=== PATIENT | female | born 1960 | race Caucasian/White ===

== ENCOUNTER → 2017-08-15 15:00 | Outpatient (CLI) | payer BC, OTHER ==
[~2017-08-15 15:00] MED LIST: ALEVE220 MG PO; HEMOCYTE PLUS C1 CAP PO; LAMISIL250 MG PO; LEXAPRO10 MG PO; NEXIUM20 MG PO; OYSCO 500+D TAB1 TAB PO; PERCOCET 10/3251 TA1 PO; PROBIOTIC1 EAC1 PO; REQUIP0.5 MG PO; TUMERIC CURCUMIN PO; [UNRECOGNIZED DRUG - OTHER] PO
[2017-08-26 11:07] VITALS: BMI 40.7
== END | disposition home or self-care (01) ==
LOC: D.RT 15:00
DX: R91.8 Other nonspecific abnormal finding of lung field (principal)

== ENCOUNTER 2017-08-22 05:05 | Inpatient (IN) | payer BC, OTHER ==
[2017-08-21 09:44] LABS: HEMATOCRIT 38.7 % (36.0-48.0); HEMOGLOBIN 12.7 g/dL (12-16); MCH 28.9 pg (26.0-34.0); MCHC 32.8 g/dL (31.0-37.0); MCV 88.2 fL (80.0-100.0); MEAN PLATELET VOLUME 11.7 fL (7.4-10.4); RBC 4.39 10x6/uL (4.00-5.40); RDW 13.6 % (11.5-14.5); WBC 6.9 10x3/uL (4.8-10.8)
[2017-08-21 09:52] LABS: APTT 29.8 SECONDS (22.8-39.4); INR 1.04 (0.85-1.17); PROTIME 13.2 SECONDS (11.6-15.0)
[2017-08-21 09:54] LABS: APPEARANCE CLEAR (CLEAR); BILIRUBIN NEGATIVE (NEGATIVE); COLOR YELLOW (YELLOW); GLUCOSE NEGATIVE (NEGATIVE); KETONE NEGATIVE (NEGATIVE); NITRITE NEGATIVE (NEGATIVE); PROTEIN NEGATIVE (NEGATIVE); SPECIFIC GRAVITY 1.015 (1.005-1.020); UROBILINOGEN NORMAL (NORMAL)
[2017-08-21 10:14] LABS: CREATININE - SERUM 0.9 mg/dL (0.6-1.3)
[2017-08-21 10:15] LABS: ANION GAP 12.6 mmol/L (8-16); BILIRUBIN - TOTAL 0.39 mg/dL (0.2-1.3); CALCIUM 8.7 mg/dL (8.5-10.1); CARBON DIOXIDE 28.3 mmol/L (21.0-32.0); POTASSIUM - SERUM 3.9 mmol/L (3.5-5.1); PROTEIN - SERUM 7.3 g/dL (6.4-8.2)
[~2017-08-22] VITALS: Ht 172.7 cm; Wt 117.3 kg
[2017-08-22] VITALS (48 sets, daily range): BP systolic 88–148; BP diastolic 40–93; BMI 39.4
--- NOTE | ~2017-08-22 | OP ---
PATIENT NAME: XIAO MCMLULEN MEDICAL RECORD: [id number] :58 LOCATION:[facility] ADMISSION DATE:08/22/17 SURGEON: COLEMAN THORNE MD DATE OF OPERATION: 08/22/2017 SURGEON: Coleman Thorne MD ANESTHESIA: General endotracheal. ANESTHESIOLOGIST: Cirilo Hammond MD CATCHER FILTER TIP: Cirilo Robison MD OPERATION PERFORMED: 1. Right thoracotomy with mediastinal dissection of lymph nodes level 7, 8, and 9. 2. Video-assisted thoracoscopy on the right lower lobe superior segmentectomy. 3. Flexible fiberoptic bronchoscopy. PREOPERATIVE DIAGNOSIS: History of malignant melanoma with a lesion in the superior segment of the right lower lobe that is reactive on PET scan. POSTOPERATIVE DIAGNOSIS: Benign inflammatory tumor, right lower lobe. INDICATION FOR OPERATION: Solitary pulmonary nodule. FINDINGS OF THE OPERATION: Solitary pulmonary nodule by frozen section is benign inflammatory tissue. Enlarged lymph nodes level 7, 8, and 9. SPECIMENS: 1. Right lower lobe superior segmentectomy. 2. Level 7 lymph nodes. 3. Level 8 lymph nodes. 4. Level 9 lymph nodes. ESTIMATED BLOOD LOSS: Less than 100 mL. DESCRIPTION OF PROCEDURE: After informed consent, adequate preoperative medication evaluation, the patient was brought to the operating room, placed on the table in the supine position. After induction of general endotracheal anesthesia and application of appropriate monitoring devices, the flexible fiberoptic bronchoscopy and placement of a double lumen tube, the patient was turned in a left lateral decubitus position. The right chest prepped and draped in sterile field, utilizing Betadine scrub, alcohol, and Betadine solution. A Betadine-impregnated drape was also used. The pressure points and neurological structures were protected. A video-assisted thoracoscopy port was placed in the mid axillary line at ninth interspace and the lung examined. There was neovascularization of the superior segment of the right lower lobe and 2 working ports were made, one anteriorly and one posteriorly utilizing a blunt fabric dissector and Harmonic scalpel. The posterior fissure was partially developed and utilizing an Endo-BOBBY stapler, the posterior fissure was further developed. Attention was then turned towards the middle lobe and its junction to the bronchus intermedius was approximated. The posterior hilum was dissected utilizing a Harmonic scalpel and sharp dissection. Using an Endo-BOBBY stapler, the segmentectomy was performed of the superior segment in right lower lobe. OPERATIVE REPORT [id number] XIAO MCMULLEN This was extracted. Examination did not demonstrate the nodule to Dr. Robison or myself. Therefore, the specimen was sent to pathology. On visual exam with the video-assisted thoracoscopy, there were enlarged lymph nodes that were black at level 7, 8, and 9. A small thoracotomy incision was then made from the posterior port anteriorly to better examine the lung, the thoracotomy was extended, and manual palpation of the lower lobe, middle lobe, and upper lobe did not reveal any abnormality. The lymph nodes at level 7, 8, and 9 were then dissected free of surrounding structures and sent to pathology separately. The inferior pulmonary ligament was mobilized and dissection carried out anteriorly to the level of the middle lobe vein. The chest was irrigated away being for pathology. The pathologist found a nodule in the superior segment. Specimen and frozen section did not reveal any carcinoma or malignant melanoma. The pathologist felt that this was an inflammatory lesion and not malignant. We therefore irrigated the chest with copious amounts of antibiotic solution and normal saline. There was no active bleeding. Instrument count and sponge counts were correct times 2. Two #32 chest tubes were placed, one anteriorly and superiorly, one posteriorly and inferiorly. Chest was again irrigated. Instrument count and sponge count were correct times 2. Chest was closed in layers utilizing #2 Vicryl pericostal sutures, #1 Vicryl on the latissimus dorsi, 2-0 Vicryl on the subcutaneous tissue, and skin approximated with 3-0 subcuticular Vicryl. One of the chest tubes was placed in the camera port. The other port was closed utilizing 2-0 Vicryl and 5-0 subcuticular Monocryl. Sterile dressings were applied. The patient tolerated the procedure in the supine position. She underwent flexible fiberoptic bronchoscopy once again with removal of mucus in the right main stem bronchus. The patient was then awakened and conveyed to the CV-ICU in satisfactory condition. TRANSINT:[id number] Voice Confirmation ID: [id number] DOCUMENT ID: [id number] COLEMAN THORNE MD at 1058 CC: [id number] DICTATION DATE: 08/22/17 1239 ENDODONTIST: 08/22/17 1408 ADM IN [id number] [place] [address]
--- NOTE | ~2017-08-22 | HP ---
PATIENT: XIAO MCMULLEN MEDICAL RECORD: [id number] ACCOUNT: [id number] LOCATION:[facility] : 58 ADMISSION DATE: 08/22/17 HISTORY AND PHYSICAL EXAMINATION XIAO Stauffer (57yo, F) ID# [id number]. Date/Time08/14/2017 02:15XTAMY01 1960Service Dept.NP_[facility] ClinicProviderEDNITZA THORNE MDInsuranceMed Primary: [place] ([place]) Insurance # : [id number] Employer Name : UNKNOWN Med Secondary: FOR LIFE ( - MEDICARE SUPPLEMENT) Insurance # : [id number] Employer Name : UNKNOWN Prescription: CMX - Member is eligible. Prescription: ESI1 - Member is eligible. Chief Complaint Lung mass right pulmonary mass Vitals BP:146/84 sitting L arm 08/14/2017 01:45 pm 144/82 sitting R arm 08/14/2017 01:46 pmBP Cuff Size:adult 08/14/2017 01:45 pm adult 08/14/2017 01:46 pmHR:72,reg 08/14/2017 01:46 pmHt:5 ft 8 in 08/14/2017 01:46 pmWt:250 lbs 08/14/2017 01:46 pmNotes:started out with melanoma to right tricep, was sent to [facility] for f/u, he found spot on r LL on PET. Had CT guided biopsy, showed inflammation.Reimaged 3 months later, it was still there and unchanged. Sent to Dr Thorne by Dr Joy for evaluation. 08/14/2017 01:49 pmBMI:38 08/14/2017 01:46 pmAllergies Reviewed Allergies PENICILLINSMedications Reviewed Medications azithromycin 250 mg xgsyhz99/02/17 crzjnsYrxqkutvytcwqwtrbimchbo-bvbtercswwyrdqr-YB 2 mg-30 mg-10 mg/5 mL syrup07/21/16 filledCaremarkCheratussin AC 10 mg-100 mg/5 mL oral biwfxa08/30/17 filledCaremarkdoxycycline hyclate 100 mg uypapsp16/30/17 filledCaremarkescitalopram 10 mg wzlyme48/12/18 filledCaremarkmeloxicam 15 mg /07/18 filledCaremarkmethylPREDNISolone 4 mg tablets in a dose pack07/21/16 filledCaremarkrOPINIRole 0.25 mg /07/18 filledCaremarkrOPINIRole 0.5 mg aafmwx00/12/18 filledCaremarkterbinafine HCl 250 mg bosbns85/07/18 filledCaremarkProblems Reviewed Problems History of Malignant melanoma - Onset: 08/14/2017 Solitary nodule of lung - Onset: 08/08/2017 Family History Discussed Family History Father- Malignant tumor of lung - Carcinoma of prostateMother- Carcinoma of breastSocial History Discussed Social History Cardiology Smoking Status: Never smoker Alcohol intake: None Surgical History Reviewed Surgical History R triceps 0.75mm superficial spreading melanoma 02/16/17, wide local excision 03/02/17 HISTORY AND PHYSICAL [id number] 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 HPI Dyspnea Reported by patient. Associated Symptoms: no chest pain; no palpitations; no orthopnea; no PND; no fever; no chills; no wheezing; no dietary indiscretion; no sputum production; no hemoptysis; no weight gain; no dyspepsia Fatigue Reported by patient. Severity: normal sleep patterns; normal exercise habits; normal activity; improving Timing: better Context: symptoms improve on weekends/vacation; no problems/stress at work or home Modifying Factors: no new stressors in life; taking vitamins Associated Symptoms: no drug/alcohol withdrawal; no depression; no anxiety; no sleep disturbances; no snoring; periods of not breathing (apnea) have not been observed; no recent change in weight malignant melanoma removed right tricep area of March 2017 hyper metabolic right lower lobe lesion ROS Patient re ports no fever, no night sweats, no significant weight gain, no significant weight loss, and no exercise intolerance. She reports no dry eyes, no irritation, and no vision change. She reports no difficulty hearing and no ear pain. She reports no frequent n osebleeds and no nose/sinus problems. She reports no sore throat, no bleeding gums, no snoring, no dry mouth, no mouth ulcers, no oral abnormalities, and no teeth problems. She reports no jugular vein distension and no swollen glands. She reports no chest pain, no arm pain on exertion, no shortness of breath when walking, no shortness of breath when lying down, no palpitations, and no known heart murmur. She reports no cough, no wheezing, no shortness of breath, and no coughing up blood. She reports no abd o geno pain, no vomiting, normal appetite, no diarrhea, not vomiting blood, no nausea, and no constipation. She reports no incontinence, no difficulty urinating, no hematuria, and no increased frequency. She reports no muscle aches, no muscle weakness, no a rthralgias/joint pain, no back pain, and no swelling in the extremities. She reports no abnormal mole, no jaundice, and no rashes. She reports no loss of consciousness, no weakness, no numbness, no seizures, no dizziness, and no headaches. She reports no depression, no sleep disturbances, feeling safe in relationship, and no alcohol abuse. She reports no fatigue. She reports no swollen glands and no bruising. She reports no runny nose, no sinus pressure, no itching, no hives, and no frequent sneezing. ROS as noted in the HPI Physical Exam Patient is a 57-year-old female. Constitutional: General Appearance healthy-appearing and obese. Level of Distress NAD. Ambulation ambulating normally. Cardiovascular: Apical Impulse not displaced or no thrill. Heart Aus cultation HISTORY AND PHYSICAL [id number] STANDERFERXIAO normal s1 and s2; no murmurs, rubs, or gallops; and RRR. Arterial Pulses no abdominal aorta bruits, femoral bruits, or popliteal bruits and 2+ bilateral, carotid 2+ bilateral, femoral 2+ bilateral, popliteal 2+ bilateral, and dorsalis pedis 2+ b ilateral. Edema no edema or varicosities. Lungs: Repiratory Effort no dyspnea. Percussion no hyperresonance or dullness or flatness. Auscultation no wheezing, rhonchi, or rales / crackles and breathing sounds normal, good air movement, and CTA except as noted. Abdomen: Bowl Sounds normal. Inspection and Palpation no tenderness, guarding, masses, or rebound tenderness and soft and non-distended. Liver non-tender and no hepatomegaly. Spleen non-tender and no splenomegaly. Hernia none palpable. Musculoskeletal System: Gait And Stance normal gait and stance. Digits and Nails normal nails and no cyanosis. Neurologic: Cranial Nerves grossly intact. Reflexes DTRs 2+ bilaterally throughout. Sensation grossly intact. Lymph Nodes: Lymph Nodes no cervical LAD, supraclavicular LAD, axillary LAD, or inguinal LAD. Eyes: Lids and Conjunctivae no discharge or pallor and non-injected. Pupils PERRLA. Cornea grossly intact. EOM EOMI. Lens clear. Sclera non-icteric. Neck: Neck no masses, enlarged lymph nodes, or carotid bruits and supple and trachea midline. Thyroid no enlargement or nodules and non-tender. Skin: Inspection and Palpation no rash, lesions, ulcers, jaundice, or abnormal nevi; right tricep incision well healed. Assessment / Plan history of malignant melanoma right arm Solitary pulmonary nodule superior segment right lower lobe hypermetabolic on PET scan 1. Solitary nodule of lung - solitary pulmonary nodule right lung superior segment right lower lobe R91.1: Solitary pulmonary nodule 2. History of Malignant melanoma Z85.820: Personal history of malignant melanoma of skin Discussion Notes the patient has a recent history of malignant melanoma. She has a hypermetabolic nodule in the superior segment to the right lower lobe. I Agree with Dr. Ton Joy she would benefit from pulmonary resection. We will try to resect this lesion with video-assisted thoracoscopy. If we cannot locate the nodule or other multiple reasons she will require an open th o racotomy. We discussed segmental resection as well as lobectomy . We also discussed the expected benefits and risk of surgery and the risk included bleeding, infection, stroke, , and the imponderables. She and her understand all of the above and wished to proceed with planned surgery. She will need pulmonary function studies prior to surgery. HISTORY AND PHYSICAL [id number] XIAO MCMULLEN EDWARD MD at 1401 CC: [id number] DICTATION DATE: 08/14/17 1400 CONTROL OFFICER MANAGER: ASIA 08/15/17 1133 [id number] [place] [address]
--- NOTE | ~2017-08-22 | OP ---
PATIENT NAME: XIAO MCMULLEN MEDICAL RECORD: [id number] :58 LOCATION:[facility] ADMISSION DATE:08/22/17 SURGEON: YASMINE HICKMAN MD DATE OF OPERATION: 08/22/[address] Coleman Magallon with the video-assisted thoracoscopic wedge resection. My involvement in the operation included being there from the beginning of the operation. I inserted one of the thoracoscopic trocars. My activity in the operation included, but was not limited to, manipulation of tissue. Multiple firings of the linear stapling device. Manipulation of the lung, insertion of the endoscopic retrieval bag. Also retrieval of the operative specimen through one of the trocar sites. I then scrubbed out as Dr. Magallon was planning on performing a full thoracotomy. TRANSINT:[id number] Voice Confirmation ID: [id number] DOCUMENT ID: [id number] YASMINE HICKMAN MD CC: [id number] DICTATION DATE: 08/22/171627 TOUR ESCORT: 08/22/17 1735 ADM IN [facility] [address] [id number]
--- NOTE | ~2017-08-22 | CN ---
PATIENT NAME:XIAO JUARES MEDICAL RECORD: [id number] : 58 LOCATION:[facility] ADMIT DATE: 08/22/17 ACCOUNT: [id number] CONSULTING PHYSICIAN: KORIN LANE MD REFERRING PHYSICIAN: COLEMAN THORNE MD DATE OF CONSULTATION: 08/25/2017 CONSULT REQUESTING PHYSICIAN: Dr. Coleman Thorne. REASON FOR CONSULTATION: Atelectasis, right lower lobe status post partial lobectomy. HISTORY OF PRESENT ILLNESS: Ms. Juares is a 57-year-old female who has a history of melanoma of the right arm. The patient has a PET scan, which showed a nodule in the superior segment of the right lower lobe. The nodule was hypermetabolic. The patient underwent superior segmental resection and lymph node removal on 08/22/2017. The chest radiograph today showed that the patient has atelectasis and elevated right hemidiaphragm. REVIEW OF SYSTEMS: Mainly in the history of present illness. PAST MEDICAL HISTORY: 1. Pulmonary melanoma. 2. Pulmonary nodule. PAST SURGICAL HISTORY: She is now status post resection of the superior segment of the right lower lobe. ALLERGIES: There are no known drug allergies. PRESENT MEDICATIONS: Vinja was reviewed. PERSONAL AND SOCIAL HISTORY: The patient is a nonsmoker, nondrinker. FAMILY HISTORY: Noncontributory. PHYSICAL EXAMINATION: GENERAL: Now, the patient is lying comfortably. She is not in acute distress. VITAL SIGNS: The blood pressure is 126/57, pulse is 90, respiration 20, temperature 98.6, SPO2 is 92% on room air. HEENT: Conjunctivae pink, sclerae nonicteric. NECK: Supple, no JVD. CHEST: The chest excursion is minimal on the right side. There are crackles at the right base. HEART: Rhythm regular, normal sound, no murmur. ABDOMEN: Soft. Bowel sounds present. No hepatosplenomegaly. RECTAL: Deferred. EXTREMITIES: No cyanosis, no clubbing, no pedal edema. SKIN: Warm, normal turgor. CENTRAL NERVOUS SYSTEM: The patient is awake and alert. There are no obvious cranial nerve abnormalities. The gait was not tested. IMAGING: CT scan of the chest: There are postoperative changes. There are 2 right-sided chest tubes, volume less in the right hemithorax with area of consolidation with air bronchogram, adjacent to the surgical sutures. There are CONSULT REPORT [id number] XIAO JUARES prominent enlarged mediastinal lymph nodes measuring about 1.1 cm. IMPRESSION: 1. Pneumonia with air bronchogram in the right lower lobe. 2. Atelectasis in the right lower lobe. 3. Elevated right hemidiaphragm secondary to above. 4. Status post resection of the superior segment of the right lower lobe. 5. Pulmonary nodule. 6. History of melanoma. RECOMMENDATIONS: 1. We will start her on empiric antibiotics to cover for the gram-negative rods. 2. Mucinex. 3. Nebulizer with IPPB. Dr. Thorne thank you for involving me in the care of Ms. Juares. TRANSINT:[id number] Voice Confirmation ID: [id number] DOCUMENT ID: [id number] KORIN LANE MD CC: COLEMAN THORNE [id number] DICTATION DATE: 08/25/17 183 BARIATRIC SURGEON: 08/25/172110 ADM IN [facility] [address] [id number]
[~2017-08-22 05:05] MED LIST changes: -HEMOCYTE PLUS C1 CAP PO; -PERCOCET 10/3251 TA1 PO
[2017-08-23] VITALS (97 sets, daily range): BP systolic 90–124; BP diastolic 47–74; BMI 40.7
[2017-08-23 07:08] LABS: HEMATOCRIT 35.1 % (36.0-48.0); HEMOGLOBIN 11.4 g/dL (12-16); MCH 28.9 pg (26.0-34.0); MCHC 32.5 g/dL (31.0-37.0); MCV 89.1 fL (80.0-100.0); MEAN PLATELET VOLUME 11.2 fL (7.4-10.4); RBC 3.94 10x6/uL (4.00-5.40); RDW 13.7 % (11.5-14.5)
[2017-08-23 07:14] LABS: BILIRUBIN - TOTAL 0.53 mg/dL (0.2-1.3); CALCIUM 7.6 mg/dL (8.5-10.1); CARBON DIOXIDE 26.9 mmol/L (21.0-32.0); CREATININE - SERUM 0.9 mg/dL (0.6-1.3); POTASSIUM - SERUM 3.9 mmol/L (3.5-5.1)
[2017-08-23 07:16] LABS: WBC 12.3 10x3/uL (4.8-10.8)
[2017-08-23 07:19] LABS: ALBUMIN 2.9 g/dL (3.4-5.0)
[2017-08-24] VITALS (40 sets, daily range): BP systolic 91–121; BP diastolic 38–88
[2017-08-24 06:37] LABS: HEMATOCRIT 31.8 % (36.0-48.0); HEMOGLOBIN 10.2 g/dL (12-16); MCH 28.8 pg (26.0-34.0); MCHC 32.1 g/dL (31.0-37.0); MCV 89.8 fL (80.0-100.0); MEAN PLATELET VOLUME 10.9 fL (7.4-10.4); RBC 3.54 10x6/uL (4.00-5.40); RDW 13.8 % (11.5-14.5); WBC 10.2 10x3/uL (4.8-10.8)
[2017-08-24 07:00] LABS: ALBUMIN 2.4 g/dL (3.4-5.0); ALKALINE PHOSPHATASE 84 U/L (46-116); BILIRUBIN - TOTAL 0.39 mg/dL (0.2-1.3); CALC OSMOLALITY 285 mosm/kg (275-300); CALCIUM 7.8 mg/dL (8.5-10.1); CARBON DIOXIDE 29.2 mmol/L (21.0-32.0); CHLORIDE - SERUM 110 mmol/L (98-107); CREATININE - SERUM 0.8 mg/dL (0.6-1.3); GLUCOSE 110 mg/dL (74-106); POTASSIUM - SERUM 4.2 mmol/L (3.5-5.1); PROTEIN - SERUM 5.7 g/dL (6.4-8.2); SODIUM 143 mmol/L (136-145); UREA NITROGEN 12 mg/dL (7-18); eGFR NON AFRICAN AMERICAN 78 mL/min (90-120)
[2017-08-24 07:02] LABS: ALT (SGPT) 61 U/L (10-68)
[2017-08-25] VITALS (24 sets, daily range): BP systolic 94–129; BP diastolic 40–61
[2017-08-25 06:08] LABS: HEMATOCRIT 29.9 % (36.0-48.0); HEMOGLOBIN 9.7 g/dL (12-16); MCH 28.7 pg (26.0-34.0); MCHC 32.4 g/dL (31.0-37.0); MCV 88.5 fL (80.0-100.0); MEAN PLATELET VOLUME 11.1 fL (7.4-10.4); RBC 3.38 10x6/uL (4.00-5.40); RDW 13.9 % (11.5-14.5); WBC 11.1 10x3/uL (4.8-10.8)
[2017-08-25 06:25] LABS: ALBUMIN 2.2 g/dL (3.4-5.0); ALKALINE PHOSPHATASE 124 U/L (46-116); ALT (SGPT) 76 U/L (10-68); BILIRUBIN - TOTAL 0.49 mg/dL (0.2-1.3); CALC OSMOLALITY 276 mosm/kg (275-300); CALCIUM 7.9 mg/dL (8.5-10.1); CARBON DIOXIDE 28.5 mmol/L (21.0-32.0); CHLORIDE - SERUM 105 mmol/L (98-107); CREATININE - SERUM 0.8 mg/dL (0.6-1.3); GLUCOSE 103 mg/dL (74-106); POTASSIUM - SERUM 3.9 mmol/L (3.5-5.1); PROTEIN - SERUM 5.8 g/dL (6.4-8.2); SODIUM 139 mmol/L (136-145); UREA NITROGEN 9 mg/dL (7-18); eGFR NON AFRICAN AMERICAN 78 mL/min (90-120)
[2017-08-26] VITALS (24 sets, daily range): BP systolic 103–144; BP diastolic 42–83; Ht 172.7 cm; Wt 117.3 kg
[2017-08-27] VITALS (24 sets, daily range): BP systolic 106–155; BP diastolic 49–82
[2017-08-28] VITALS (12 sets, daily range): BP systolic 111–127; BP diastolic 58–67
[2017-08-28 05:50] LABS: HEMOGLOBIN 9.2 g/dL (12-16); MCH 28.5 pg (26.0-34.0); MCHC 32.9 g/dL (31.0-37.0); MCV 86.7 fL (80.0-100.0); MEAN PLATELET VOLUME 10.4 fL (7.4-10.4); RBC 3.23 10x6/uL (4.00-5.40); RDW 13.6 % (11.5-14.5)
[2017-08-28 06:10] LABS: ALBUMIN 2.1 g/dL (3.4-5.0); ALKALINE PHOSPHATASE 259 U/L (46-116); ALT (SGPT) 153 U/L (10-68); BILIRUBIN - TOTAL 0.31 mg/dL (0.2-1.3); CALC OSMOLALITY 278 mosm/kg (275-300); CALCIUM 8.3 mg/dL (8.5-10.1); CARBON DIOXIDE 30.2 mmol/L (21.0-32.0); CHLORIDE - SERUM 103 mmol/L (98-107); CREATININE - SERUM 0.8 mg/dL (0.6-1.3); GLUCOSE 108 mg/dL (74-106); POTASSIUM - SERUM 3.7 mmol/L (3.5-5.1); SODIUM 139 mmol/L (136-145); UREA NITROGEN 12 mg/dL (7-18); eGFR NON AFRICAN AMERICAN 78 mL/min (90-120)
[2017-08-28] MEDS ORDERED: HEMOCYTE PLUS C1 CAP PO (10:23)
[2017-08-28] MEDS ORDERED: PERCOCET 10/3251 TA1 PO (10:25)
== END 2017-08-28 11:55 | disposition home or self-care (01) | DRG 166 ==
LOC: D.CVICU 05:05 → D.SDCHOLD 05:05 → D.CVICU 10:48
PROVIDERS: Internal Medicine Cardiovascular Disease
PROC: 07B74ZZ Excision of Thorax Lymphatic, Percutaneous Endoscopic Approach (ICD-10-PCS; 2017-08-22)
PROC: 0BBF4ZX Excision of Right Lower Lung Lobe, Percutaneous Endoscopic Approach, Diagnostic (ICD-10-PCS; principal; 2017-08-22 07:30)
DX: D14.31 Benign neoplasm of right bronchus and lung (principal); J15.6 Pneumonia due to other Gram-negative bacteria; J98.11 Atelectasis; Z68.41 Body mass index [BMI] 40.0-44.9, adult; J91.8 Pleural effusion in other conditions classified elsewhere; Z85.820 Personal history of malignant melanoma of skin; J98.6 Disorders of diaphragm; D64.9 Anemia, unspecified; E66.9 Obesity, unspecified; Y95 Nosocomial condition

== ENCOUNTER 2017-09-13 09:34 | Emergency (ER) | payer BC ==
[2017-08-26 11:07] VITALS: BMI 40.7
[~2017-09-13 09:34] MED LIST changes: +HEMOCYTE PLUS C1 CAP PO; +PERCOCET 10/3251 TA1 PO
[2017-09-13 11:27] LABS: ALBUMIN 3.3 g/dL (3.4-5.0); ANION GAP 9.6 mmol/L (8-16); BILIRUBIN - TOTAL 0.33 mg/dL (0.2-1.3); CALCIUM 9.3 mg/dL (8.5-10.1); CARBON DIOXIDE 30.7 mmol/L (21.0-32.0); CREATININE - SERUM 0.9 mg/dL (0.6-1.3); MAGNESIUM - SERUM 1.9 mg/dL (1.8-2.4); POTASSIUM - SERUM 4.3 mmol/L (3.5-5.1); PROTEIN - SERUM 7.6 g/dL (6.4-8.2)
[2017-09-13 11:38] LABS: HEMATOCRIT 34.1 % (36.0-48.0); HEMOGLOBIN 11.1 g/dL (12-16); LYMPHOCYTES 18.4 % (15-50); MCH 28.3 pg (26.0-34.0); MCHC 32.6 g/dL (31.0-37.0); MEAN PLATELET VOLUME 10.3 fL (7.4-10.4); NEUTROPHILS 69.2 % (40-80); PLATELET COUNT 369 10x3/uL (130-400); RBC 3.92 10x6/uL (4.00-5.40); RDW 13.5 % (11.5-14.5)
== END 2017-09-13 16:04 | disposition home or self-care (01) ==
LOC: D.ER 09:34
PROVIDERS: Emergency Medicine
DX: R04.2 Hemoptysis (principal)

== ENCOUNTER 2017-09-14 08:20 | Emergency (ER) | payer BC ==
[2017-08-26 11:07] VITALS: BMI 40.7
== END 2017-09-14 10:02 | disposition home or self-care (01) ==
LOC: D.ER 08:20
DX: F41.9 Anxiety disorder, unspecified (principal); J18.9 Pneumonia, unspecified organism

== ENCOUNTER → 2017-09-25 11:29 | Outpatient (CLI) | payer BC, OTHER ==
[2017-08-26 11:07] VITALS: BMI 40.7
== END | disposition home or self-care (01) ==
LOC: D.RAD 09:45
DX: R91.8 Other nonspecific abnormal finding of lung field (principal); Z98.890 Other specified postprocedural states

== ENCOUNTER → 2017-12-27 06:59 | Outpatient (CLI) | payer BC, OTHER ==
[2017-08-26 11:07] VITALS: BMI 40.7
== END | disposition home or self-care (01) ==
LOC: D.RT 06:59
DX: R91.1 Solitary pulmonary nodule (principal); D86.9 Sarcoidosis, unspecified

== ENCOUNTER → 2018-06-28 09:35 | Outpatient (CLI) | payer BC, OTHER ==
[2017-08-26 11:07] VITALS: BMI 40.7
== END | disposition home or self-care (01) ==
LOC: D.RT 06-22 08:00 → D.CT 06-22 09:00 → D.RT 06-27 08:00 → D.CT 06-27 09:00 → D.RT 09:35
DX: D86.0 Sarcoidosis of lung (principal)